=== PATIENT | female | born 1970 | race Caucasian/White ===

== ENCOUNTER 2022-05-08 07:57 | Day surgery (SDC) | payer OTHER ==
[2022-05-05 17:33] VITALS: BMI 25.3
[2022-05-08] MEDS ORDERED: SODIUM BICARBONATE 8.4% 50 MEQ/50 ML VIAL ONE (09:07)
[2022-05-08] MEDS ORDERED: PROPOFOL 20 ML ONE ×3 (09:26→13:29)
[2022-05-08] MEDS ORDERED: ROCURONIUM BROMIDE 50 MG/5 ML SYRINGE ONE ×2 (09:26→10:36)
[2022-05-08] MEDS ORDERED: MIDAZOLAM HCL 2 MG/2 ML SINGLE DOSE VIAL ONE (09:26)
[2022-05-08] MEDS ORDERED: LIDOCAINE HCL/PF 2% SDV 5ML VIAL ONE (09:27)
[2022-05-08] MEDS ORDERED: LIDOCAINE HCL 2% JELLY (5 ML/TUBE) ONE (09:28)
[2022-05-08] MEDS ORDERED: GLYCOPYRROLATE 0.2 MG/1 ML VIAL ONE ×3 (09:50→13:40)
[2022-05-08] MEDS ORDERED: LIDOCAINE HCL 2% (20ML MULTI-DOSE VIAL) ONE (10:05)
[2022-05-08] MEDS ORDERED: EPINEPHrine/PF 1 MG/1 ML (1:1,000) AMPULE ONE (10:05)
[2022-05-08] MEDS ORDERED: BUPIVACAINE HCL/EPINEPHRINE/PF 30 ML VIAL IJ ONE (10:55)
[2022-05-08] MEDS ORDERED: SEVOFLURANE 250 ML BTL ONE (11:00)
[2022-05-08] MEDS ORDERED: NEOSTIGMINE METHYLSULFATE 0.5 MG/1 ML - 10 ML MDV ONE (13:06)
[2022-05-08] MEDS ORDERED: ONDANSETRON 4 MG/2 ML VIAL ONE (13:25)
[2022-05-08] MEDS ORDERED: DEXAMETHASONE SOD PHOSPHATE 4 MG/1 ML VIAL ONE (13:25)
[2022-05-08] MEDS ORDERED: KETOROLAC TROMETHAMINE 30 MG/1 ML VIAL ONE (13:25)
[2022-05-08] MEDS ORDERED: ceFAZolin SODIUM 1 GM VIAL ONE (13:25)
[2022-05-08] MEDS ORDERED: HYDROmorphone HCL/PF 1 MG/ML VIAL ONE (13:49)
[2022-05-08] MEDS ORDERED: PROMETHAZINE HCL 25 MG/1 ML VIAL IVPUSH PRN (14:25)
[2022-05-08] MEDS ORDERED: oxyCODONE HCL 5 MG TABLET PO PRN ×2 (14:25)
[2022-05-08] MEDS ORDERED: ONDANSETRON 4 MG/2 ML VIAL IVPUSH PRN (14:25)
[2022-05-08 16:52] VITALS: BP 116/60; PULSE 85; RESP 18; TEMP 97.2
== END 2022-05-08 16:52 | disposition home or self-care (01) ==
LOC: FASU 07:57
PROVIDERS: ATTEND Plastic Surgery
PROC: 0HRV0JZ Replacement of Bilateral Breast with Synthetic Substitute, Open Approach (ICD-10-PCS; 2022-05-08)
PROC: 0HX5XZZ Transfer Chest Skin, External Approach (ICD-10-PCS; 2022-05-08)
PROC: 0HRV37Z Replacement of Bilateral Breast with Autologous Tissue Substitute, Percutaneous Approach (ICD-10-PCS; 2022-05-08)
PROC: 0HPU0JZ Removal of Synthetic Substitute from Left Breast, Open Approach (ICD-10-PCS; principal; 2022-05-08 10:01)
PROC: 0HPT0JZ Removal of Synthetic Substitute from Right Breast, Open Approach (ICD-10-PCS; 2022-05-08 10:01)
DX: Z85.3 Personal history of malignant neoplasm of breast (principal); Z90.13 Acquired absence of bilateral breasts and nipples; N65.0 Deformity of reconstructed breast; E88.1 Lipodystrophy, not elsewhere classified
CPT/HCPCS: 14000; 15769; 19342; 19371; L8600; 84703; 88300-TC; 88305-TC; 94760; C1789

== ENCOUNTER 2022-12-18 06:16 | Day surgery (SDC) | payer OTHER ==
[2022-12-15 15:53] VITALS: BMI 25.0
[~2022-12-18 06:16] MED LIST: LACTATED RINGERS SOLUTION 1,000 ML IV SCH; ONDANSETRON 4 MG/2 ML VIAL IVPUSH PRN; oxyCODONE HCL 5 MG TABLET PO PRN
[2022-12-18] MEDS ORDERED: DEXAMETHASONE SOD PHOSPHATE 4 MG/1 ML VIAL ONE (07:02)
[2022-12-18] MEDS ORDERED: LIDOCAINE HCL/PF 2% SDV 5ML VIAL ONE (07:02)
[2022-12-18] MEDS ORDERED: PROPOFOL 40 ML ONE (07:02)
[2022-12-18] MEDS ORDERED: CLINDAMYCIN 600MG PREMIX IVPB 1,200 MG/100 ML BAG IVPB ONE (07:02)
[2022-12-18] MEDS ORDERED: ONDANSETRON 4 MG/2 ML VIAL ONE (07:02)
[2022-12-18] MEDS ORDERED: KETOROLAC TROMETHAMINE 30 MG/1 ML VIAL ONE (07:03)
[2022-12-18] MEDS ORDERED: MIDAZOLAM HCL 2 MG/2 ML SINGLE DOSE VIAL ONE (07:06)
[2022-12-18] MEDS ORDERED: SUCCINYLCHOLINE CHLORIDE 200 MG/10 ML SYRINGE ONE ×2 (07:07→07:32)
[2022-12-18] MEDS ORDERED: ACETAMINOPHEN INJECTION 100 ML IVPB ONE (07:12)
[2022-12-18] MEDS ORDERED: SEVOFLURANE 250 ML BTL ONE (07:12)
[2022-12-18] MEDS ORDERED: EPINEPHrine/PF 1 MG/1 ML (1:1,000) AMPULE ONE (07:15)
[2022-12-18] MEDS ORDERED: BUPIVACAINE HCL/EPINEPHRINE/PF 30 ML VIAL IJ ONE (07:15)
[2022-12-18] MEDS ORDERED: SODIUM BICARBONATE 8.4% 50 MEQ/50 ML VIAL ONE ×2 (07:16→07:34)
[2022-12-18] MEDS ORDERED: ceFAZolin SODIUM 1 GM VIAL ONE (07:17)
[2022-12-18] MEDS ORDERED: VANCOMYCIN 1,000 MG VIAL (RESTRICTED TO ID ONLY) ONE (07:17)
[2022-12-18] MEDS ORDERED: GENTAMICIN SO4 80 MG/2 ML VIAL ONE (07:17)
[2022-12-18] MEDS ORDERED: ROCURONIUM BROMIDE 50 MG/5 ML SYRINGE ONE ×2 (07:32→08:11)
[2022-12-18] MEDS ORDERED: NEOSTIGMINE METHYLSULFATE 0.5 MG/1 ML - 10 ML MDV ONE (07:34)
[2022-12-18] MEDS ORDERED: GLYCOPYRROLATE 0.2 MG/1 ML VIAL ONE ×2 (07:34)
[2022-12-18 11:42] VITALS: TEMP 97.7
[2022-12-18 12:08] VITALS: BP 115/63; PULSE 77; RESP 18
== END 2022-12-18 12:37 | disposition home or self-care (01) ==
LOC: FASU 06:16
PROVIDERS: ATTEND Plastic Surgery
PROC: 0JX60ZB Transfer Chest Subcutaneous Tissue and Fascia with Skin and Subcutaneous Tissue, Open Approach (ICD-10-PCS; 2022-12-18)
PROC: 0HUV37Z Supplement Bilateral Breast with Autologous Tissue Substitute, Percutaneous Approach (ICD-10-PCS; 2022-12-18)
PROC: 0HRV37Z Replacement of Bilateral Breast with Autologous Tissue Substitute, Percutaneous Approach (ICD-10-PCS; principal; 2022-12-18 08:32)
PROC: 0JX60ZB Transfer Chest Subcutaneous Tissue and Fascia with Skin and Subcutaneous Tissue, Open Approach (ICD-10-PCS; 2022-12-18 08:32)
DX: Z85.3 Personal history of malignant neoplasm of breast (principal); N65.0 Deformity of reconstructed breast; Z90.13 Acquired absence of bilateral breasts and nipples; N65.1 Disproportion of reconstructed breast
CPT/HCPCS: 71045-TC-FY; 81025; 88305-TC; 94760